=== PATIENT | female | born 1970 | race Hispanic/Latino ===

== ENCOUNTER 2018-09-19 21:12 | Emergency (ER) | payer BC ==
[2018-09-19 21:13] VITALS: BMI 23.9
[2018-09-19 21:32] VITALS: BP 103/56; PULSE 75; RESP 18; TEMP 98.3; O2SAT 100
--- NOTE | 2018-09-19 21:41 | ED PDOC ---
Arrival/HPI - General Chief Complaint: Lower Extremity Problem/Injury Time Seen by Provider: 09/19/18 21:17 Historian: Patient - History of Present Illness Narrative History of Present Illness (Text): 09/19/18 21:38 47 year old female, presents with injury to right leg. Patient states she was walking up stairs when she slipped and fell. Patient complaining of pain to her right ankle and right foot. Patient denies injuring anything else. Patient denies any swelling, bruising, or numbness to the extremity. Patient denies hitting head or losing consciousness. Time/Duration: Prior to Arrival Symptom Onset: Sudden Symptom Course: Unchanged Quality: Aching Activities at Onset: Light Context: Walking Past Medical History - Provider Review Nursing Documentation Reviewed: Yes - Infectious Disease Hx of Infectious Diseases: None - Tetanus Immunization Tetanus Immunization: Unknown - Reproductive Menopause: Yes Currently : No - Past Medical History Past Medical History: No Previous - Psychiatric Hx Psychophysiologic Disorder: No Hx Anxiety: No Hx Bipolar Disorder: No Hx Depression: No Hx Emotional Abuse: No Hx Hallucinations: No Hx Panic Disorder: No Hx Post Traumatic Stress Disorder: No Hx Psychosis: No Hx Physical Abuse: No Hx Schizophrenia: No Hx Sexual Abuse: No Hx Substance Use: No - Past Surgical History Past Surgical History: Non-Contributing - Surgical History Hx Hysterectomy: Yes (Partial) Other/Comment: Cysts removed - Anesthesia Hx Anesthesia: Yes Hx Anesthesia Reactions: No Hx Malignant Hyperthermia: No - Suicidal Assessment Feels Threatened In Home Enviroment: No Family/Social History - Physician Review Nursing Documentation Reviewed: Yes Family/Social History: No Known Family HX Smoking Status: Former Smoker Hx Alcohol Use: Yes Hx Substance Use: No Hx Substance Use Treatment: No Allergies/Home Meds Allergies/Adverse Reactions: Allergies No Known Allergies Allergy (Verified 04/21/14 18:51) Home Medications: Home Meds Medication Instructions Recorded Confirmed Acetaminophen/Hydrocodone [Vicodin 1 tab PO Q4 PRN 04/21/14 08/08/15 Es 750 mg-7.5 mg] Review of Systems - Physician Review All systems were reviewed & negative as marked: Yes - Review of Systems Musculoskeletal: Arthralgias (Pain to right ankle), Myalgias (Pain to right foot). absent: Joint Swelling, Other (No swelling; No bruising; No numbness) Physical Exam Vital Signs Reviewed: Yes Vital Signs Temp Pulse Resp BP Pulse Ox 09/19/18 21:23 98.3 F 75 18 103/56 L 100 Temperature: Afebrile Blood Pressure: Normal Pulse: Regular Respiratory Rate: Normal Appearance: Positive for: Well-Appearing, Non-Toxic, Comfortable Pain Distress: None Mental Status: Positive for: Alert and Oriented X 3 - Systems Exam Head: Present: Atraumatic, Normocephalic Upper Extremity: Present: Normal Inspection. No: Edema Lower Extremity: Present: Normal Inspection, NORMAL PULSES, Normal ROM, Tenderness (To the dorsal lateral aspect of right foot), Neurovascularly Intact, Capillary Refill < 2 s. No: Edema, Swelling, Deformity, Temperature Abnormalties Neurological: Present: GCS=15, CN II-XII Intact, Speech Normal, Motor Func Grossly Intact, Normal Sensory Function Skin: Present: Warm, Dry, Normal Color. No: Rashes Psychiatric: Present: Alert, Oriented x 3, Normal Insight, Normal Concentration Medical Decision Making ED Course and Treatment: 09/19/18 21:43 Impression: 47 year old female presents with ankle injury Plan: -- X-ray right ankle -- X-ray right foot -- Reassess and disposition Prior Visits: Notes and results from previous visits were reviewed Progress Notes: X-ray right ankle : no fracture, no dislocation. X-ray right foot : no fracture, no dislocation. Patient advised that official radiology read of XR is still pending and will call the patient if there is any discrepancy within 24 hours. XR results d/w the patient. Diagnosis of sprain d/w the patient. Advised RICE. Derrick wrap applied. Patient refusing crutches. Advised to follow up with primary care physician in 1-2 days without fail. Advised to take medication as prescribed. Return to the emergency room at any time for any new or worsening symptoms. Patient states she fully agrees with and understands discharge instructions. States that she agrees with the plan and disposition. Verbalized and repeated discharge instructions and plan. I have given the patient opportunity to ask any additional questions. - RAD Interpretation Radiology Orders: 09/19/18 21:22 ANKLE RIGHT 3 VIEWS ROUTINE [RAD] Stat 09/19/18 21:36 FOOT RIGHT 3 VIEWS ROUTINE [RAD] Stat - PA / TRAIN GATEMAN / Resident Statement MD/DO has reviewed & agrees with the documentation as recorded. - Scribe Statement The provider has reviewed the documentation as recorded by the Mason Wayne Provider Mason Attestation: All medical record entries made by the Mason were at my direction and personally dictated by me. I have reviewed the chart and agree that the record accurately reflects my personal performance of the history, physical exam, medical decision making, and the department course for this patient. I have also personally directed, reviewed, and agree with the discharge instructions and disposition. Disposition/Present on Arrival - Present on Arrival Any Indicators Present on Arrival: No History of DVT/PE: No History of Uncontrolled Diabetes: No Urinary Catheter: No History of Decub. Ulcer: No History Surgical Site Infection Following: None - Disposition Have Diagnosis and Disposition been Completed?: Yes Diagnosis: Ankle sprain, Foot sprain Disposition: HOME/ ROUTINE Disposition Time: 22:30 Patient Plan: Discharge Patient Problems: Current Active Problems Problem Status Onset Ankle sprain Acute Foot sprain Acute Condition: STABLE Discharge Instructions (ExitCare): Ankle Sprain (DC), Foot Sprain (DC) Additional Instructions: Thank you for letting us take care of you today. You were treated for R ankle / foot sprain. The emergency medical care you received today was directed at your acute symptoms. If you were prescribed any medication, please fill it and take as directed. It may take several days for your symptoms to resolve. Return to the Emergency Department if your symptoms worsen, do not improve, or if you have any other problems. Please contact your doctor in 2 days for re-evaluation and follow up. Bring any paperwork you were given at discharge with you along with any medications you are taking to your follow up visit. Our treatment cannot replace ongoing medical care by a primary care provider (PCP) outside of the emergency department. Thank you for allowing the [facility] team to be part of your care today. If you had an X-Ray : A Radiologist will review the ED reading if any change in treatment is needed we will contact you. Prescriptions: Naproxen 500 mg PO BID PRN #20 tablet PRN Reason: Pain, Moderate (4-7) Referrals: Leonor Mcgraw MD [Primary Care Provider] - Follow up with primary Forms: [employer] ([place]), WORK NOTE
--- NOTE | 2018-09-20 10:17 | RAD ---
Date of service: 09/19/2018 PROCEDURE: Right Foot Radiographs. HISTORY: pain COMPARISON: None. FINDINGS: BONES: Normal. No fracture. JOINTS: Normal. SOFT TISSUES: Normal. OTHER FINDINGS: None. IMPRESSION: No evidence of acute fracture or dislocation.
--- NOTE | 2018-09-20 10:18 | RAD ---
Date of service: 09/19/2018 PROCEDURE: Right Ankle Radiographs. HISTORY: pain COMPARISON: None available. FINDINGS: BONES: Normal. No fracture. JOINTS: Normal. No osteoarthritis. Ankle mortise maintained. Talar dome intact SOFT TISSUES: Mild soft tissue swelling noted. OTHER FINDINGS: None. IMPRESSION: No radiographic evidence of acute fracture or dislocation.
== END 2018-09-19 23:19 | disposition home or self-care (01) ==
LOC: ED 21:12
DX: S93.401A Sprain of unspecified ligament of right ankle, initial encounter (principal); S93.601A Unspecified sprain of right foot, initial encounter; W10.9XXA Fall (on) (from) unspecified stairs and steps, initial encounter; Z87.891 Personal history of nicotine dependence